=== PATIENT | female | born 1985 | race Two or more races ===

== ENCOUNTER 2024-06-03 11:59 | Outpatient (CLI) | payer OTHER ==
[~2024-06-03] VITALS: Ht 162.6 cm; Wt 78.0 kg
[2024-06-03 11:06] VITALS: BP 134/78; O2SAT 100
[2024-06-03] MEDS ORDERED: RINGERS SOLUTION,LACTATED 1,000 ML IV SCH (12:15)
[2024-06-03] MEDS ORDERED: PRENATAL TABLE1 EAC4 PO (12:25)
[2024-06-03 12:35] LABS: URINE APPEARANCE Clear; URINE BILIRRUBIN Negative (NEGATIVE); URINE BLOOD Negative; URINE COLOR Yellow; URINE GLUCOSE Negative (NEGATIVE); URINE KETONE Trace (NEGATIVE); URINE LEUKOCYTE Trace; URINE NITRATE Negative; URINE PROTEIN Negative (NEGATIVE); URINE UROBILINOGEN 0.2 E.U./dl
[2024-06-03 12:39] LABS: URINE BACTERIA 138.2 uL (0.0-1933); URINE RBC 2.3 uL (0.0-20.8); URINE WBC 14.3 uL (0.0-23.2)
[2024-06-03 12:46] LABS: HEMATOCRIT 34.1 % (36.0-45.00); HEMOGLOBIN 12.2 g/dL (12.0-15.00); MEAN CELL VOLUME 88.2 fL (80.00-100.00); MEAN CORPUSCULAR HEMOGLOBIN 31.6 pg (27.00-32.0); MEAN CORPUSCULAR HGB CONC 35.8 g/dl (32.0-36.0); PLATELET COUNT 304 K/uL (150-450); RED BLOOD COUNT 3.87 M/uL (4.00-6.00); RED CELL DISTRIBUTION WIDTH 12.5 % (11.5-14.5)
[2024-06-03 13:09] LABS: INR < 0.93; PARTIAL THROMBOPLASTIN TIME 24.6 SECONDS (22.0-34.0); PROTHROMBIN TIME 10.2 SECONDS (9.0-11.5)
[2024-06-03 13:26] LABS: ALBUMIN 2.6 gm/dL (3.4-5.0); BILIRUBIN TOTAL 0.55 mg/dL (0.3-1.2); CALCIUM 8.3 mg/dL (8.5-10.1); CREATININE SERUM 0.53 mg/dL (0.55-1.02); GFR 128.42; GLOBULINA 3.6 G/DL (2.4-3.5); POTASSIUM 4.17 mEq/L (3.5-5.1); TOTAL PROTEIN 6.2 gm/dL (6.4-8.2)
[2024-06-03] MEDS ORDERED: ACETAMINOPHEN 500 MG GEL..CAP PO PRN (14:15)
[2024-06-03 15:17] VITALS: BP 117/77
== END 2024-06-03 17:23 | disposition left against medical advice (07) ==
LOC: OBS/DEL 11:59
PROVIDERS: ATTEND Obstetrics & Gynecology
DX: O26.892 Other specified pregnancy related conditions, second trimester (principal); O44.00 Complete placenta previa NOS or without hemorrhage, unspecified trimester; O60.00 Preterm labor without delivery, unspecified trimester; O34.10 Maternal care for benign tumor of corpus uteri, unspecified trimester; Z3A.20 20 weeks gestation of pregnancy